=== PATIENT | male | born 1990 | race Caucasian/White ===

== ENCOUNTER 2019-02-27 14:08 | Emergency (ER) | payer OTHER ==
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
[2019-02-27] MEDS ORDERED: IBUPROFEN 400 MG TABLET (FP) PO ONE ×2 (14:23→14:24)
[2019-02-27 14:28] VITALS: BP 125/86; PULSE 64; TEMP 97.7; BMI 24.3
== END 2019-02-27 14:50 | disposition home or self-care (01) ==
LOC: FER 14:08
CPT/HCPCS: 99283-25

== ENCOUNTER 2023-08-18 13:09 | Emergency (ER) | payer OTHER ==
[2023-08-18 13:29] VITALS: BP 104/68; PULSE 74; RESP 17; TEMP 98; BMI 25.0
== END 2023-08-18 14:26 | disposition home or self-care (01) ==
LOC: JERFT 13:09
PROC: 3E023GC Introduction of Other Therapeutic Substance into Muscle, Percutaneous Approach (ICD-10-PCS; principal; 2023-08-18)
DX: R36.9 Urethral discharge, unspecified (principal); R30.0 Dysuria
CPT/HCPCS: 36415; 87491; 87591; 99284-25

== ENCOUNTER 2023-08-31 03:18 | Emergency (ER) | payer OTHER ==
[2023-08-31 03:27] VITALS: BP 139/82; PULSE 57; RESP 18; TEMP 98; BMI 24.3
== END 2023-08-31 04:35 | disposition left against medical advice (07) ==
LOC: JER 03:18
DX: R36.9 Urethral discharge, unspecified (principal); R07.0 Pain in throat; Z53.21 Procedure and treatment not carried out due to patient leaving prior to being seen by health care provider; Z20.822 Contact with and (suspected) exposure to COVID-19
CPT/HCPCS: 0241U-QW; 99283-25

== ENCOUNTER 2023-09-09 01:56 | Emergency (ER) | payer OTHER ==
[2023-09-09 02:05] VITALS: BP 151/90; PULSE 61; RESP 18; TEMP 97.7; BMI 25.0
[2023-09-09 02:57] LABS: EPI CELLS 13 /uL (0-25.1); HYALINE CASTS 1 /uL (0-3.1); PH,URINE 6.5 (5.0-8.0); URINE APPEARANCE CLEAR; URINE BACTERIA 8 /uL (0-1359); URINE BILIRUBIN NEGATIVE (NEGATIVE); URINE COLOR YELLOW; URINE GLUCOSE (UA) NEGATIVE (NEGATIVE); URINE KETONE NEGATIVE (NEGATIVE); URINE LEUK ESTERASE 1+ (NEGATIVE); URINE NITRITE NEGATIVE (NEGATIVE); URINE PROTEIN NEGATIVE (NEGATIVE); URINE RBC 10 /uL (0-23.9); URINE WBC 140 /uL (0-25.8)
[2023-09-09] MEDS ORDERED: AZITHROMYCIN 500 MG TABLET PO ONE (03:40)
[2023-09-09] MEDS ORDERED: LIDOCAINE HCL/PF 1% SDV 5ML VIAL ONE (03:57)
[2023-09-09] MEDS ORDERED: AZITHROMYCIN 500 MG TABLET ONE (03:57)
[2023-09-09] MEDS ORDERED: cefTRIAXone SODIUM 1 GM VIAL ONE (03:57)
== END 2023-09-09 04:22 | disposition home or self-care (01) ==
LOC: JER 01:56
DX: J02.9 Acute pharyngitis, unspecified (principal); A64 Unspecified sexually transmitted disease; R36.9 Urethral discharge, unspecified
CPT/HCPCS: 36415; 81003; 87086; 87491; 87591; 87661; 96372; 99284-25

== ENCOUNTER 2023-12-18 13:31 | Emergency (ER) | payer OTHER ==
[2023-12-18 13:46] VITALS: BP 104/54; PULSE 54; RESP 18; TEMP 97.5; BMI 23.5
[2023-12-18] MEDS ORDERED: IBUPROFEN 600 MG TABLET (FP) PO ONE ×2 (14:46→14:47)
== END 2023-12-18 15:36 | disposition home or self-care (01) ==
LOC: JERFT 13:31
DX: S69.90XA Unspecified injury of unspecified wrist, hand and finger(s), initial encounter (principal); M79.645 Pain in left finger(s); G89.29 Other chronic pain; M79.89 Other specified soft tissue disorders; W21.05XA Struck by basketball, initial encounter; Y93.67 Activity, basketball; Y92.310 Basketball court as the place of occurrence of the external cause
CPT/HCPCS: 73130-TC-LT-FY; 73130-TC-RT-FY; 99283-25